=== PATIENT | male | born 1970 | race Caucasian/White ===

== ENCOUNTER 2022-02-24 22:46 | Emergency (ER) | payer OTHER ==
[2022-02-25 00:37] LABS: BASOPHIL 0.3 % (0-2); EOSINOPHIL 1.2 % (0-5); HCT 42.9 % (42.0-52.0); HGB 15.6 g/dl (13.2-18.0); LYMPHOCYTE 5.1 % (15-48); MCH 32.6 pg (25.0-31.0); MCHC 36.4 g/dL (32.0-36.0); MCV 89.7 fL (78.0-100.0); MONOCYTE 4.6 % (0-12); MPV 9.1 fL (6.0-9.5); NEUTROPHIL 88.5 % (41-80); NRBC 0; PLT 137 K/uL (150-400); RBC 4.78 M/uL (4.70-6.00); RDW 12.9 % (11.5-14.0); WBC 5.9 K/uL (4.0-10.5)
[2022-02-25 00:47] LABS: INFLUENZA A NAA NEGATIVE (NEGATIVE)
[2022-02-25 00:54] LABS: CORONAVIRUS 2019 SARS-COV-2 POSITIVE (NEGATIVE)
[2022-02-25 01:04] LABS: BUN/CREAT RATIO (CALC) 8.4 RATIO; CREATININE 1.07 mg/dL (0.67-1.17); POTASSIUM 3.8 mmol/L (3.5-5.1)
[2022-02-25] MEDS ORDERED: PAXLOVID CO-PA1 EAC1 PO (01:12)
== END 2022-02-25 01:35 | disposition home or self-care (01) ==
LOC: FER 22:46
PROVIDERS: Emergency Medicine
DX: U07.1 COVID-19 (principal)
CPT/HCPCS: 36415; 80048; 85025; J1885; Q0169; U0002

== ENCOUNTER 2022-04-22 22:32 | Emergency (ER) | payer OTHER ==
[~2022-04-22 22:32] MED LIST: PAXLOVID CO-PA1 EAC1 PO
[2022-04-22 23:20] LABS: BASOPHIL 0.5 % (0-2); EOSINOPHIL 2.2 % (0-5); HCT 39.4 % (42.0-52.0); HGB 14.4 g/dl (13.2-18.0); LYMPHOCYTE 43.3 % (15-48); MCHC 36.5 g/dL (32.0-36.0); MCV 90.4 fL (78.0-100.0); MONOCYTE 6.2 % (0-12); MPV 9.7 fL (6.0-9.5); NEUTROPHIL 47.6 % (41-80); NRBC 0; PLT 148 K/uL (150-400); RBC 4.36 M/uL (4.70-6.00); RDW 13.2 % (11.5-14.0)
[2022-04-22 23:21] LABS: BILIRUBIN NEGATIVE (NEGATIVE); BLOOD NEGATIVE Ery/uL (NEGATIVE); CLARITY CLEAR (CLEAR); COLOR YELLOW (YELLOW); GLUCOSE (U) NORMAL (NORMAL); LEUKOCYTES NEGATIVE Leu/uL (NEGATIVE); NITRITE NEGATIVE (NEGATIVE); PROTEIN NEGATIVE (NEGATIVE); SPECIFIC GRAVITY 1.025 (1.001-1.030)
[2022-04-22 23:35] LABS: ALBUMIN 3.9 g/dL (3.4-5.0); BILIRUBIN - TOTAL 1.9 mg/dL (0.2-1.0); BUN/CREAT RATIO (CALC) 8.2 RATIO; CREATININE 0.97 mg/dL (0.67-1.17); GLOBULIN (CALCULATION) 2.9 g/dL; TOTAL PROTEIN 6.8 g/dL (6.4-8.2)
[2022-04-22 23:55] LABS: CORONAVIRUS 2019 SARS-COV-2 NEGATIVE (NEGATIVE); INFLUENZA A NAA NEGATIVE (NEGATIVE)
[2022-04-23 04:25] LABS: INR 1.17 (0.9-1.2); PROTHROMBIN TIME 14.6 SECONDS (11.9-13.9); PTT 31.9 SECONDS (24.9-34.6)
== END 2022-04-23 08:48 | disposition home or self-care (01) ==
LOC: FER 22:32
PROVIDERS: Emergency Medicine; Physician Assistant
DX: B34.9 Viral infection, unspecified (principal); R07.89 Other chest pain; Z88.2 Allergy status to sulfonamides; Z20.822 Contact with and (suspected) exposure to COVID-19; Z28.310 Unvaccinated for COVID-19
CPT/HCPCS: 36415; 70450; 71045; 80053; 81003; 83690; 84145; 84484; 85025; 85610; 85730; 93005; J1885; J2405; J7030; U0002